=== PATIENT | female | born 1980 | race Caucasian/White ===

== ENCOUNTER 2017-10-22 17:31 | Inpatient (IN) | payer MEDICAID ==
[2017-10-22 18:20] LABS: ADD MAN DIFF? NO
[2017-10-22 18:22] LABS: BASOPHILS % 0.4 % (0.0-2.0); EOSINOPHILS % 0.4 % (0.0-7.0); HEMATOCRIT 35.1 % (37.0-47.0); HEMOGLOBIN 10.9 g/dl (12.0-16.0); LYMPHOCYTES % 27.4 % (15.0-51.0); MEAN CORPUSCULAR HEMOGLOBIN 24.1 pg (29.0-33.0); MEAN CORPUSCULAR HGB CONC 31.1 g/dl (32.0-37.0); MEAN CORPUSCULAR VOLUME 77.7 fl (82.0-101.0); MEAN PLATELET VOLUME 11.1 fl (7.4-10.4); MONOCYTE # 0.5 10^3/ul (0.3-0.9); MONOCYTES % 6.3 % (0.0-11.0); NEUTROPHIL # 4.8 10^3/ul (1.6-7.5); NEUTROPHILS % 65.2 % (39.0-77.0); PLATELET COUNT 286 10^3/UL (140-415); RED BLOOD COUNT 4.52 10^6/ul (4.20-5.40); RED CELL DISTRIBUTION WIDTH 14.6 % (11.5-14.5)
[2017-10-22 18:22] LABS: WHITE BLOOD COUNT 7.3 10^3/ul (4.8-10.8)
[2017-10-22 18:44] LABS: ALANINE AMINOTRANSFERASE 14 IU/L (13-69); ALBUMIN 3.4 g/dl (3.3-4.9); ALBUMIN/GLOBULIN RATIO 0.97; ALKALINE PHOSPHATASE 158 IU/L (42-121); ANION GAP 14 (8-16); ASPARTATE AMINO TRANSFERASE 20 IU/L (15-46); BILIRUBIN,INDIRECT 0.5 mg/dl (0-1.1); BILIRUBIN,TOTAL 0.5 mg/dl (0.2-1.3); BLOOD UREA NITROGEN 7 mg/dl (7-20); CALCIUM 8.8 mg/dl (8.4-10.2); CARBON DIOXIDE 23 mmol/L (21-31); CHLORIDE 105 mmol/L (97-110); CREATININE 0.66 mg/dl (0.44-1.00); GLUCOSE 93 mg/dl (70-220); POTASSIUM 4.5 mmol/L (3.5-5.1); SODIUM 137 mmol/L (135-144); TOTAL PROTEIN 6.9 g/dl (6.1-8.1)
[2017-10-22 18:46] LABS: URIC ACID 5.7 mg/dl (3.1-7.9)
[2017-10-22 19:31] LABS: ADD UMIC YES; UR ASCORBIC ACID NEGATIVE (NEGATIVE); UR BILIRUBIN (Dip) NEGATIVE (NEGATIVE); UR BLOOD (Dip) NEGATIVE (NEGATIVE); UR BUDDING YEAST FEW /HPF (NONE SEEN); UR CLARITY CLOUDY (CLEAR); UR COLOR YELLOW (YELLOW); UR GLUCOSE (Dip) NEGATIVE (NEGATIVE); UR KETONES (Dip) NEGATIVE (NEGATIVE); UR LEUKOCYTE ESTERASE (Dip) 2+ Leu/ul (NEGATIVE); UR MUCUS FEW /HPF (NONE SEEN); UR NITRITE (Dip) NEGATIVE (NEGATIVE); UR RBC 10 /HPF (0-5); UR SPECIFIC GRAVITY (Dip) 1.016 (1.003-1.030); UR SQUAMOUS EPITHELIAL CELL MANY /HPF (FEW); UR TOTAL PROTEIN (Dip) NEGATIVE (NEGATIVE); UR UROBILINOGEN (Dip) 1+ mg/dL (NEGATIVE); UR WBC 8 /HPF (0-5)
[2017-10-22] MEDS: ACETAMINOPHEN 500 MG TAB PO (21:11)
[2017-10-22] MEDS: LACTATED RINGER'S 1,000 ML IV ×2 (21:18→22:18)
[2017-10-22] MEDS: NIFEdipine 10 MG CAP PO (22:56)
[2017-10-23] MEDS ORDERED: AL HYDROX/MG HYDROX/SIMETH 30 ML CUP PO (01:00)
[2017-10-23] MEDS ORDERED: ACETAMINOPHEN 325 MG TAB PO (01:00)
[2017-10-23] MEDS ORDERED: GLUCAGON 1 MG INJ IM (01:30)
[2017-10-23] MEDS ORDERED: GLUCOSE GEL 15 GRAM TUBE PO ×2 (01:30)
[2017-10-23] MEDS ORDERED: DEXTROSE 50% 50 ML SYRINGE IV ×2 (01:30)
[2017-10-23] MEDS ORDERED: GLUCOSE GEL 15 GRAM TUBE BUCCAL (01:30)
[2017-10-23] MEDS: MAGNESIUM SULFATE 4 GM/100 ML 100 ML IV (01:55)
[2017-10-23] MEDS: MAGNESIUM SULFATE 20 GM/500 ML 500 ML IV ×3 (02:26→23:16)
[2017-10-23] MEDS: BETAMET NA PHOS/AC(6 MG/ML) 5ML INJ IM (03:21)
[2017-10-23] MEDS: LACTATED RINGER'S 1,000 ML IV ×3 (05:07→20:00)
[2017-10-23 07:28] LABS: INR 0.94; PROTIME 12.7 Sec (11.9-14.9)
[2017-10-23 07:29] LABS: PARTIAL THROMBOPLASTIN TIME 28.7 Sec (25.0-35.0)
[2017-10-23] MEDS: DOCUSATE SODIUM 100 MG CAP PO (09:00)
[2017-10-23] MEDS: PRENATAL VITAMIN PO ×2 (11:52)
[2017-10-23 12:14] LABS: MAGNESIUM 4.5 mg/dl (1.7-2.5)
[2017-10-23 16:10] LABS: RAPID PLASMA REAGIN NONREACTIVE (NR)
[2017-10-23] MEDS: ACCU-CHEK XX ×4 (22:48)
[2017-10-23] MEDS: INSULIN ASPART [NOVOLOG] 3 ML PEN SC ×4 (22:48→23:14)
[2017-10-23] MEDS: NPH, HUMAN INSULIN ISOPHANE 3ML VIAL SC (23:13)
[2017-10-23] MEDS: metFORMIN 500 MG TAB PO (23:16)
[2017-10-24 01:15] LABS: MAGNESIUM 4.6 mg/dl (1.7-2.5)
[2017-10-24] MEDS: BETAMET NA PHOS/AC(6 MG/ML) 5ML INJ IM (03:15)
[2017-10-24] MEDS: LACTATED RINGER'S 1,000 ML IV ×3 (06:10→20:00)
[2017-10-24 07:51] LABS: MAGNESIUM 4.7 mg/dl (1.7-2.5)
[2017-10-24] MEDS: ACCU-CHEK XX ×4 (08:43→20:32)
[2017-10-24] MEDS: PRENATAL VITAMIN PO (08:44)
[2017-10-24] MEDS: DOCUSATE SODIUM 100 MG CAP PO (08:44)
[2017-10-24] MEDS: INSULIN ASPART [NOVOLOG] 3 ML PEN SC ×4 (08:48→20:44)
[2017-10-24] MEDS: MAGNESIUM SULFATE 20 GM/500 ML 500 ML IV ×2 (08:50→19:09)
[2017-10-24 12:37] LABS: MAGNESIUM 4.7 mg/dl (1.7-2.5)
[2017-10-24] MEDS: metFORMIN 500 MG TAB PO (20:55)
[2017-10-24] MEDS: NPH, HUMAN INSULIN ISOPHANE 3ML VIAL SC (20:55)
[2017-10-25] MEDS: MAGNESIUM SULFATE 20 GM/500 ML 500 ML IV (02:52)
[2017-10-25] MEDS: LACTATED RINGER'S 1,000 ML IV (08:40)
[2017-10-25] MEDS: ACCU-CHEK XX ×3 (08:40→15:00)
[2017-10-25] MEDS: INSULIN ASPART [NOVOLOG] 3 ML PEN SC ×2 (09:10→11:20)
[2017-10-25] MEDS: DOCUSATE SODIUM 100 MG CAP PO (09:14)
[2017-10-25] MEDS: PRENATAL VITAMIN PO (09:14)
== END 2017-10-25 16:15 | disposition home or self-care (01) | DRG 780 ==
LOC: OBT 17:31 → L-D 17:32 → PP1 10-23 01:00 → L-D 18:42
DX: O47.03 False labor before 37 completed weeks of gestation, third trimester (principal); Z3A.34 34 weeks gestation of pregnancy; O24.419 Gestational diabetes mellitus in pregnancy, unspecified control; O09.523 Supervision of elderly multigravida, third trimester
CPT/HCPCS: 36415; 76818; 80053; 81001; 82962; 83735; 84560; 85025; 85610; 85730; 86592; 86850; 86900; 86901; 96360; 96361

== ENCOUNTER 2017-11-12 09:23 | Inpatient (IN) | payer MEDICAID ==
[2017-11-12] MEDS: ACETAMINOPHEN 325 MG TAB PO (11:13)
[2017-11-12] MEDS: LACTATED RINGER'S 1,000 ML IV ×3 (11:48→18:17)
[2017-11-12 12:42] LABS: ADD MAN DIFF? NO
[2017-11-12 12:45] LABS: BASOPHILS % 0.3 % (0.0-2.0); EOSINOPHILS % 0.3 % (0.0-7.0); HEMATOCRIT 34.3 % (37.0-47.0); HEMOGLOBIN 10.9 g/dl (12.0-16.0); LYMPHOCYTES % 30.5 % (15.0-51.0); MEAN CORPUSCULAR HEMOGLOBIN 24.3 pg (29.0-33.0); MEAN CORPUSCULAR HGB CONC 31.8 g/dl (32.0-37.0); MEAN CORPUSCULAR VOLUME 76.4 fl (82.0-101.0); MEAN PLATELET VOLUME 11.6 fl (7.4-10.4); MONOCYTE # 0.4 10^3/ul (0.3-0.9); MONOCYTES % 6.4 % (0.0-11.0); NEUTROPHIL # 4.1 10^3/ul (1.6-7.5); NEUTROPHILS % 62.2 % (39.0-77.0); PLATELET COUNT 236 10^3/UL (140-415); RED BLOOD COUNT 4.49 10^6/ul (4.20-5.40); RED CELL DISTRIBUTION WIDTH 15.5 % (11.5-14.5)
[2017-11-12 12:45] LABS: WHITE BLOOD COUNT 6.6 10^3/ul (4.8-10.8)
[2017-11-12 12:51] LABS: ADD UMIC YES; UR ASCORBIC ACID NEGATIVE (NEGATIVE); UR BACTERIA FEW /HPF (NONE SEEN); UR BILIRUBIN (Dip) NEGATIVE (NEGATIVE); UR BLOOD (Dip) NEGATIVE (NEGATIVE); UR CLARITY SLIGHTLY CLOUDY (CLEAR); UR COLOR YELLOW (YELLOW); UR GLUCOSE (Dip) NEGATIVE (NEGATIVE); UR KETONES (Dip) NEGATIVE (NEGATIVE); UR LEUKOCYTE ESTERASE (Dip) 3+ Leu/ul (NEGATIVE); UR MUCUS FEW /HPF (NONE SEEN); UR NITRITE (Dip) NEGATIVE (NEGATIVE); UR RBC 1 /HPF (0-5); UR SPECIFIC GRAVITY (Dip) 1.017 (1.003-1.030); UR SQUAMOUS EPITHELIAL CELL FEW /HPF (FEW); UR TOTAL PROTEIN (Dip) 2+ mg/dl (NEGATIVE); UR UROBILINOGEN (Dip) 1+ mg/dL (NEGATIVE); UR WBC 3 /HPF (0-5)
[2017-11-12 13:02] LABS: ALANINE AMINOTRANSFERASE 14 IU/L (13-69); ALBUMIN 2.9 g/dl (3.3-4.9); ALBUMIN/GLOBULIN RATIO 0.78; ALKALINE PHOSPHATASE 196 IU/L (42-121); ANION GAP 11 (8-16); ASPARTATE AMINO TRANSFERASE 23 IU/L (15-46); BILIRUBIN,INDIRECT 0.5 mg/dl (0-1.1); BILIRUBIN,TOTAL 0.5 mg/dl (0.2-1.3); BLOOD UREA NITROGEN 8 mg/dl (7-20); CARBON DIOXIDE 23 mmol/L (21-31); CHLORIDE 104 mmol/L (97-110); CREATININE 0.53 mg/dl (0.44-1.00); GLUCOSE 88 mg/dl (70-220); POTASSIUM 4.2 mmol/L (3.5-5.1); SODIUM 134 mmol/L (135-144); TOTAL PROTEIN 6.6 g/dl (6.1-8.1); URIC ACID 6.7 mg/dl (3.1-7.9)
[2017-11-12] MEDS ORDERED: CARBOPROST 250 MCG INJ IM (14:00)
[2017-11-12] MEDS ORDERED: MISOPROSTOL 200 MCG TAB PR (14:00)
[2017-11-12] MEDS ORDERED: OXYTOCIN 30 UNITS/LR 500 ML IV (14:00)
[2017-11-12] MEDS ORDERED: METHYLERGONOVINE 0.2 MG INJ IM (14:00)
[2017-11-12 14:11] LABS: INR 0.86; PROTIME 11.8 Sec (11.9-14.9); PT RATIO 0.9
[2017-11-12 14:12] LABS: PARTIAL THROMBOPLASTIN TIME 28.1 Sec (23.0-35.0)
[2017-11-12 15:17] LABS: RAPID PLASMA REAGIN NONREACTIVE (NR)
[2017-11-13] MEDS: DEXTROSE 5%-LR 1,000 ML IV ×4 (01:31→17:31)
[2017-11-13] MEDS: LACTATED RINGER'S 1,000 ML IV ×7 (01:37→21:52)
[2017-11-13] MEDS ORDERED: KETOROLAC 30 MG INJ IV (08:00)
[2017-11-13] MEDS ORDERED: METOCLOPRAMIDE 10 MG INJ IV ×2 (08:00→14:00)
[2017-11-13] MEDS ORDERED: NALOXONE (0.4 MG/ML) INJ IV (08:00)
[2017-11-13] MEDS ORDERED: DIPHENHYDRAMINE 50 MG INJ IV ×3 (08:00→14:00)
[2017-11-13] MEDS ORDERED: ONDANSETRON 4 MG INJ IV ×3 (08:00→14:00)
[2017-11-13] MEDS ORDERED: HYDROmorphONE 1 MG/5 ML IV SYRINGE IV ×6 (08:00→14:00)
[2017-11-13] MEDS ORDERED: HYDROmorphONE 0.5 MG/0.5 ML SYG IV ×2 (08:00)
[2017-11-13] MEDS ORDERED: FENTAnyl 50 MCG/ML VIAL IV ×2 (08:00)
[2017-11-13] MEDS ORDERED: morphine SULFATE/PF (10 MG/10 ML) INJ (08:38)
[2017-11-13] MEDS ORDERED: BUPIVACAINE 0.75%/DEXT (SPINAL) 2 ML INJ (08:39)
[2017-11-13] MEDS ORDERED: PHENYLephrine (100 MCG/ML) 5ML SYG ×2 (08:49→09:30)
[2017-11-13] MEDS ORDERED: MILRINONE LACTATE 1 MG/ML VIAL (09:30)
[2017-11-13] MEDS ORDERED: FENTAnyl 50 MCG/ML VIAL (09:55)
[2017-11-13] MEDS ORDERED: ONDANSETRON 4 MG INJ (09:55)
[2017-11-13] MEDS: OXYTOCIN 30 UNITS/LR 500 ML IV ×3 (10:33→20:03)
[2017-11-13] MEDS ORDERED: MISOPROSTOL 200 MCG TAB PR (14:00)
[2017-11-13] MEDS ORDERED: LANOLIN 7 GM TUBE TOP (14:00)
[2017-11-13] MEDS ORDERED: CARBOPROST 250 MCG INJ IM (14:00)
[2017-11-13] MEDS: IBUPROFEN 800 MG TAB PO ×2 (14:00→22:00)
[2017-11-13] MEDS ORDERED: OXYTOCIN 30 UNITS/LR 500 ML IV (14:00)
[2017-11-13] MEDS: KETOROLAC 30 MG INJ IV (18:41)
[2017-11-13] MEDS: ACCU-CHEK XX (22:34)
[2017-11-14] MEDS: DEXTROSE 5%-LR 1,000 ML IV (01:31)
[2017-11-14] MEDS: CEFAZOLIN 2 GM/50 ML (PMX) 50 ML IV (01:54)
[2017-11-14] MEDS: LACTATED RINGER'S 1,000 ML IV ×3 (05:52→21:52)
[2017-11-14] MEDS: IBUPROFEN 800 MG TAB PO ×3 (06:00→21:42)
[2017-11-14] MEDS: ACCU-CHEK XX ×4 (07:35→21:00)
[2017-11-14 07:44] LABS: ADD MAN DIFF? NO
[2017-11-14 07:50] LABS: WHITE BLOOD COUNT 8.2 10^3/ul (4.8-10.8)
[2017-11-14 07:50] LABS: BASOPHILS % 0.2 % (0.0-2.0); EOSINOPHILS % 0.1 % (0.0-7.0); HEMATOCRIT 31.7 % (37.0-47.0); LYMPHOCYTES # 1.8 10^3/ul (0.8-2.9); LYMPHOCYTES % 21.5 % (15.0-51.0); MEAN CORPUSCULAR HEMOGLOBIN 24.2 pg (29.0-33.0); MEAN CORPUSCULAR HGB CONC 31.5 g/dl (32.0-37.0); MEAN CORPUSCULAR VOLUME 76.6 fl (82.0-101.0); MEAN PLATELET VOLUME 10.8 fl (7.4-10.4); MONOCYTE # 0.4 10^3/ul (0.3-0.9); MONOCYTES % 5.1 % (0.0-11.0); NEUTROPHILS % 72.9 % (39.0-77.0); PLATELET COUNT 219 10^3/UL (140-415); RED BLOOD COUNT 4.14 10^6/ul (4.20-5.40); RED CELL DISTRIBUTION WIDTH 15.6 % (11.5-14.5)
[2017-11-14] MEDS: SENNA/DOCUSATE NA (8.6MG/50MG) TAB PO ×2 (08:55→21:42)
[2017-11-14] MEDS: OXYCODONE/ACETAMINOPHEN (5/325) TAB PO (08:56)
[2017-11-15] MEDS: IBUPROFEN 800 MG TAB PO ×3 (05:47→21:59)
[2017-11-15] MEDS: LACTATED RINGER'S 1,000 ML IV ×4 (05:52→23:18)
[2017-11-15] MEDS: ACCU-CHEK XX ×4 (08:01→21:00)
[2017-11-15] MEDS: SENNA/DOCUSATE NA (8.6MG/50MG) TAB PO ×2 (09:02→21:59)
[2017-11-15] MEDS: OXYCODONE/ACETAMINOPHEN (5/325) TAB PO ×2 (09:06→19:11)
[2017-11-15 13:59] LABS: HEMOGLOBIN A1C 6.8 % (0-5.9)
[2017-11-15] MEDS ORDERED: GLUCOSE GEL 15 GRAM TUBE PO ×2 (14:00)
[2017-11-15] MEDS ORDERED: GLUCAGON 1 MG INJ IM (14:00)
[2017-11-15] MEDS ORDERED: DEXTROSE 50% 50 ML SYRINGE IV ×2 (14:00)
[2017-11-15] MEDS ORDERED: GLUCOSE GEL 15 GRAM TUBE BUCCAL (14:00)
[2017-11-15 14:26] LABS: IRON 43 ug/dl (35-150)
[2017-11-15 14:36] LABS: % IRON SATURATION 10 % SAT (22-52); TOTAL IRON BINDING CAPACITY 443 ug/dl (241-421)
[2017-11-15 14:43] LABS: FERRITIN 15.5 ng/ml (6.2-137.0)
[2017-11-15 14:56] LABS: HEPATITIS C VIRAL ANTIBODY NEGATIVE (NEGATIVE)
[2017-11-15] MEDS: metFORMIN 500 MG TAB PO (18:03)
[2017-11-15 19:24] LABS: ADD UMIC YES; UR ASCORBIC ACID NEGATIVE (NEGATIVE); UR BILIRUBIN (Dip) NEGATIVE (NEGATIVE); UR BLOOD (Dip) 2+ mg/dL (NEGATIVE); UR CLARITY CLEAR (CLEAR); UR COLOR YELLOW (YELLOW); UR GLUCOSE (Dip) NEGATIVE (NEGATIVE); UR KETONES (Dip) NEGATIVE (NEGATIVE); UR LEUKOCYTE ESTERASE (Dip) NEGATIVE Leu/ul (NEGATIVE); UR MUCUS FEW /HPF (NONE SEEN); UR NITRITE (Dip) NEGATIVE (NEGATIVE); UR RBC > 182 /HPF (0-5); UR SPECIFIC GRAVITY (Dip) 1.024 (1.003-1.030); UR SQUAMOUS EPITHELIAL CELL FEW /HPF (FEW); UR TOTAL PROTEIN (Dip) 2+ mg/dl (NEGATIVE); UR UROBILINOGEN (Dip) 1+ mg/dL (NEGATIVE); UR WBC 2 /HPF (0-5)
[2017-11-16 03:13] LABS: HEPATITIS B SURFACE ANTIGEN NEGATIVE (NEGATIVE)
[2017-11-16] MEDS: IBUPROFEN 800 MG TAB PO ×2 (05:38→14:37)
[2017-11-16] MEDS: ACCU-CHEK XX ×3 (08:55→17:35)
[2017-11-16] MEDS: metFORMIN 500 MG TAB PO ×2 (08:59→17:40)
[2017-11-16] MEDS: SENNA/DOCUSATE NA (8.6MG/50MG) TAB PO (08:59)
[2017-11-16] MEDS: DIPHTH/TET/ACEL PERTUSS (ADULT) 0.5 ML VIAL IM* (11:32)
[2017-11-16] MEDS ORDERED: SOD FERRIC GLUC COMPLX 125 MG in SOD CHLORIDE 0.9% 100 ML IVPB (13:30)
[2017-11-16] MEDS: OXYCODONE/ACETAMINOPHEN (5/325) TAB PO (17:40)
== END 2017-11-16 20:20 | disposition home or self-care (01) | DRG 766 ==
LOC: OBT 09:23 → L-D 11-13 08:36 → OBT 13:33 → L-D 13:33 → PP1 11-13 13:30
PROC: 10D00Z1 Extraction of Products of Conception, Low, Open Approach (ICD-10-PCS; principal; 2017-11-12)
PROC: 0UB70ZZ Excision of Bilateral Fallopian Tubes, Open Approach (ICD-10-PCS; 2017-11-12)
DX: O24.424 Gestational diabetes mellitus in childbirth, insulin controlled (principal); O13.4 Gestational [pregnancy-induced] hypertension without significant proteinuria, complicating childbirth; O99.824 Streptococcus B carrier state complicating childbirth; O99.89 Other specified diseases and conditions complicating pregnancy, childbirth and the puerperium; N73.6 Female pelvic peritoneal adhesions (postinfective); O99.02 Anemia complicating childbirth; D50.0 Iron deficiency anemia secondary to blood loss (chronic); Z37.0 Single live birth; Z3A.37 37 weeks gestation of pregnancy; Z30.2 Encounter for sterilization; Z23 Encounter for immunization; Z90.49 Acquired absence of other specified parts of digestive tract
CPT/HCPCS: 76818; 80053; 81001; 82728; 82962; 83036; 83540; 84443; 84560; 85025; 85610; 85730; 86592; 86803; 86850; 86900; 86901; 87086; 87340; 88302; 90715; 99464